=== PATIENT | female | born 1995 | race Caucasian/White ===

== ENCOUNTER 2016-08-01 19:30 | Emergency (ER) | payer OTHER ==
[2016-08-01 19:35] VITALS: BP 136/67; PULSE 88; RESP 16; TEMP 98.3; O2SAT 99
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
[2016-08-01] MEDS ORDERED: LORazepam 2 MG/ML VIAL IM ONE (20:00)
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
[2016-08-01 20:24] VITALS: BP 124/67; PULSE 90; RESP 16; TEMP 98.5; O2SAT 97
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
[2016-08-01] MEDS ORDERED: BACL10TA PO (21:03)
[2016-08-01] MEDS ORDERED: IBUP800T23 PO (21:03)
== END 2016-08-01 21:25 | disposition home or self-care (01) ==
LOC: NEPA 19:30
DX: S16.1XXA Strain of muscle, fascia and tendon at neck level, initial encounter (principal); S80.01XA Contusion of right knee, initial encounter; M54.5 Low back pain; F41.9 Anxiety disorder, unspecified; V89.2XXA Person injured in unspecified motor-vehicle accident, traffic, initial encounter
CPT/HCPCS: 72125; 73564; 96372; 99284; J2060